=== PATIENT | female | born 1990 | race Caucasian/White ===

== ENCOUNTER 2017-05-12 17:17 | Emergency (ER) | payer MEDICARE, MEDICAID ==
[~2017-05-12] VITALS: Ht 162.6 cm; Wt 84.0 kg
[2017-05-12 17:34] VITALS: BP 112/77
[2017-05-12] MEDS ORDERED: IBUP-1986 PO (17:56)
== END 2017-05-12 18:08 | disposition home or self-care (01) ==
LOC: ER 17:18
DX: S86.912A Strain of unspecified muscle(s) and tendon(s) at lower leg level, left leg, initial encounter (principal); Z88.8 Allergy status to other drugs, medicaments and biological substances; W22.8XXA Striking against or struck by other objects, initial encounter; Y93.67 Activity, basketball; Y92.89 Other specified places as the place of occurrence of the external cause; Y99.8 Other external cause status
CPT/HCPCS: 99283

== ENCOUNTER 2017-07-02 18:07 | Emergency (ER) | payer MEDICARE, MEDICAID ==
[~2017-07-02] VITALS: Ht 162.6 cm; Wt 87.4 kg
[~2017-07-02 18:07] MED LIST: IBUP-1986 PO
[2017-07-02 20:01] VITALS: BP 148/94
== END 2017-07-02 20:02 | disposition home or self-care (01) ==
LOC: ER 18:08
DX: J02.9 Acute pharyngitis, unspecified (principal); H81.10 Benign paroxysmal vertigo, unspecified ear; Z56.0 Unemployment, unspecified; Z88.8 Allergy status to other drugs, medicaments and biological substances
CPT/HCPCS: 99281

== ENCOUNTER 2017-10-11 09:36 | Emergency (ER) | payer MEDICARE, MEDICAID ==
[~2017-10-11] VITALS: Ht 565.3 cm; Wt 83.5 kg
[2017-10-11 10:04] VITALS: BP 137/61
[2017-10-11] MEDS ORDERED: NAPR-56 PO (10:18)
== END 2017-10-11 10:33 | disposition home or self-care (01) ==
LOC: ER 09:43
DX: M25.562 Pain in left knee (principal); G89.29 Other chronic pain; Z56.0 Unemployment, unspecified; Z88.8 Allergy status to other drugs, medicaments and biological substances; Z79.899 Other long term (current) drug therapy
CPT/HCPCS: 99284

== ENCOUNTER 2017-12-19 19:35 | Emergency (ER) | payer MEDICARE, MEDICAID ==
[~2017-12-19] VITALS: Ht 162.6 cm; Wt 69.3 kg
[2017-12-19] MEDS ORDERED: ketorolac tromethamine 15mg/ml inj. IM ONE (20:20)
[2017-12-19] MEDS ORDERED: IBUP-1985 PO (20:23)
[2017-12-19 20:49] LABS: URINE HCG POSITIVE (NEG)
[2017-12-20 02:02] VITALS: BP 139/87
== END 2017-12-20 02:22 | disposition home or self-care (01) ==
LOC: ER 19:35
DX: M71.21 Synovial cyst of popliteal space [Baker], right knee (principal); M25.561 Pain in right knee; Z33.1 Pregnant state, incidental; Z87.891 Personal history of nicotine dependence; Z88.8 Allergy status to other drugs, medicaments and biological substances
CPT/HCPCS: 81025; 93971; 96372; 99285; J1885; J7030

== ENCOUNTER → 2017-12-24 | Emergency (ER) | payer MEDICARE, MEDICAID ==
[~2017-12-24] VITALS: Ht 162.6 cm; Wt 78.2 kg
[~2017-12-24] MED LIST changes: +BUPIVAcaine/PF 2.5 mg/ml (0.25%) 30ml vial IJ ONE; +BUPIVAcaine/PF 2.5mg/ml (0.25%) 10ml vial IJ ONE; +IBUP-1985 PO
[2017-12-24 14:03] VITALS: BP 126/69
== END | disposition home or self-care (01) ==
LOC: ER 13:51
DX: O99.712 Diseases of the skin and subcutaneous tissue complicating pregnancy, second trimester (principal); L02.31 Cutaneous abscess of buttock; Z88.8 Allergy status to other drugs, medicaments and biological substances; Z3A.21 21 weeks gestation of pregnancy
CPT/HCPCS: 10060; 99284; A6449; J3490

== ENCOUNTER 2018-04-27 11:12 | Emergency (ER) | payer MEDICARE, MEDICAID ==
[~2018-04-27] VITALS: Ht 162.6 cm; Wt 80.6 kg
[~2018-04-27 11:12] MED LIST changes: -BUPIVAcaine/PF 2.5 mg/ml (0.25%) 30ml vial IJ ONE; -BUPIVAcaine/PF 2.5mg/ml (0.25%) 10ml vial IJ ONE
[2018-04-27 12:47] LABS: BASOPHILS % (AUTO) 0.4 % (0-1); EOSINOPHILS % (AUTO) 0.3 % (0-6); HEMATOCRIT 35.3 % (35.0-45.0); LYMPHOCYTES # (AUTO) 1.7 X10'3 (1.1-4.8); LYMPHOCYTES % (AUTO) 21.2 % (21-51); MEAN CORPUSCULAR HEMOGLOBIN 31.9 PG (27.0-31.0); MEAN CORPUSCULAR VOLUME 93.8 FL (78-98); MEAN PLATELET VOLUME 8.2 FL (7.4-10.4); MONOCYTES # (AUTO) 0.5 X10'3 (0-0.9); NEUTROPHILS % (AUTO) 72.1 % (42-75); PLATELET COUNT 330 X10'3 (140-440); RED BLOOD COUNT 3.77 X10'6 (4.20-5.60); RED CELL DISTRIBUTION WIDTH 12.7 % (11.5-14.5); WHITE BLOOD COUNT 8.2 X10'3 (4.5-11.0)
[2018-04-27 13:04] LABS: ALANINE AMINOTRANSFERASE 41 U/L (12-78); ALBUMIN 2.7 G/DL (3.4-5.0); ALBUMIN/GLOBULIN RATIO 0.6 (1.1-1.5); ALKALINE PHOSPHATASE 87 IU/L (46-116); ANION GAP 12 (8-16); ASPARTATE AMINO TRANSFERASE 18 U/L (10-37); BILIRUBIN,TOTAL 0.2 MG/DL (0.1-1.0); BLOOD UREA NITROGEN 4 MG/DL (7-18); BUN/CREATININE RATIO 9.5 (6.6-38.0); CALCIUM 8.3 MG/DL (8.5-10.1); CHLORIDE 102 MMOL/L (99-107); CREATININE 0.42 MG/DL (0.40-0.90); GLUCOSE 81 MG/DL (70-104); POTASSIUM 3.4 MMOL/L (3.5-5.1); SODIUM 137 MMOL/L (135-145); TOTAL CARBON DIOXIDE 23.2 MMOL/L (24-32); TOTAL PROTEIN 6.9 G/DL (6.4-8.2); eGFR > 90 ML/MIN
[2018-04-27 13:33] LABS: BETA HCG,QUANTITATIVE 23956 mIU/ml
[2018-04-27 14:05] VITALS: BP 103/58
== END 2018-04-27 14:10 | disposition home or self-care (01) ==
LOC: ER 11:13
DX: O20.0 Threatened abortion (principal); O26.892 Other specified pregnancy related conditions, second trimester; J02.9 Acute pharyngitis, unspecified; Z88.8 Allergy status to other drugs, medicaments and biological substances; Z79.899 Other long term (current) drug therapy; Z3A.23 23 weeks gestation of pregnancy
CPT/HCPCS: 36415; 76811; 80053; 84702; 85025; 86900; 86901; 99284

== ENCOUNTER 2019-03-16 20:11 | Emergency (ER) | payer MEDICARE, MEDICAID ==
[~2019-03-16] VITALS: Ht 162.6 cm; Wt 77.8 kg
[2019-03-16 20:30] VITALS: BP 120/76
[2019-03-16] MEDS ORDERED: IBUP-1984 PO (21:00)
== END 2019-03-16 21:15 | disposition home or self-care (01) ==
LOC: ER 20:12
DX: S63.650A Sprain of metacarpophalangeal joint of right index finger, initial encounter (principal); F31.9 Bipolar disorder, unspecified; Z88.8 Allergy status to other drugs, medicaments and biological substances; Z79.899 Other long term (current) drug therapy; W01.0XXA Fall on same level from slipping, tripping and stumbling without subsequent striking against object, initial encounter; Y93.89 Activity, other specified; Y92.89 Other specified places as the place of occurrence of the external cause; Y99.8 Other external cause status
CPT/HCPCS: 29130; 73140; 99284

== ENCOUNTER 2019-08-26 22:19 | Emergency (ER) | payer MEDICAID, MEDICARE ==
[~2019-08-26] VITALS: Ht 162.6 cm; Wt 59.1 kg
[2019-08-26 22:21] VITALS: BP 146/91
[2019-08-26] MEDS ORDERED: IBUP-1985 PO (22:50)
== END 2019-08-26 23:14 | disposition home or self-care (01) ==
LOC: ER 22:20
DX: M25.561 Pain in right knee (principal); F31.9 Bipolar disorder, unspecified; Z88.0 Allergy status to penicillin; Z79.899 Other long term (current) drug therapy; X50.9XXA Other and unspecified overexertion or strenuous movements or postures, initial encounter; Y93.02 Activity, running; Y92.89 Other specified places as the place of occurrence of the external cause; Y99.8 Other external cause status
CPT/HCPCS: 29505; 99283

== ENCOUNTER 2021-01-21 08:55 | Emergency (ER) | payer MEDICARE, MEDICAID ==
[~2021-01-21] VITALS: Ht 162.6 cm; Wt 80.0 kg
[2021-01-21] MEDS ORDERED: acetaminophen 325mg tablet PO ONE (09:05)
--- NOTE | 2021-01-21 09:22 | NUR ---
no redness noted. minor swelling in the area but no drainage present. patient reports left buttocks pain but other symptoms. denies nausea/vomiting. pt not up to date on tdap. pt unaware of dogs vaccine status.
[2021-01-21 09:26] VITALS: BP 121/86
[2021-01-21 09:51] LABS: URINE HCG NEGATIVE (NEG)
[2021-01-21] MEDS ORDERED: bacitracin 15gm ointment TP ONE (09:55)
[2021-01-21] MEDS ORDERED: SULF1TAB49 PO (09:55)
[2021-01-21] MEDS ORDERED: CLIN150C2 PO (09:55)
[2021-01-21] MEDS ORDERED: TETanus/Pertussis (Acell)/Diphther VAC/PF (Tdap-Adult) 0.5ml syringe IMVAC ONE (09:55)
== END 2021-01-21 10:33 | disposition home or self-care (01) ==
LOC: ER 08:56
DX: S70.12XA Contusion of left thigh, initial encounter (principal); E05.90 Thyrotoxicosis, unspecified without thyrotoxic crisis or storm; Z88.0 Allergy status to penicillin; Z79.2 Long term (current) use of antibiotics; Z79.899 Other long term (current) drug therapy; W54.0XXA Bitten by dog, initial encounter; Y93.9 Activity, unspecified; Y92.89 Other specified places as the place of occurrence of the external cause; Y99.8 Other external cause status
CPT/HCPCS: 81025; 90471; 90715; 99283

== ENCOUNTER 2022-04-04 12:08 | Emergency (ER) | payer MEDICARE, MEDICAID ==
[~2022-04-04] VITALS: Ht 162.6 cm; Wt 82.5 kg
[2022-04-04 12:36] VITALS: BP 130/82
[2022-04-04] MEDS ORDERED: CLIN-30 PO ×3 (15:48→16:01)
[2022-04-04] MEDS ORDERED: clindamycin 150mg capsule PO ONE (15:50)
[2022-04-04] MEDS ORDERED: ibuprofen tablet 400 MG TABLET PO ONE (15:50)
== END 2022-04-04 16:08 | disposition home or self-care (01) ==
LOC: ER 12:09
DX: K04.7 Periapical abscess without sinus (principal); F31.9 Bipolar disorder, unspecified; Z88.0 Allergy status to penicillin
CPT/HCPCS: 99283

== ENCOUNTER 2023-04-08 10:06 | Emergency (ER) | payer MEDICARE, MEDICAID ==
[~2023-04-08] VITALS: Ht 162.6 cm; Wt 85.9 kg
[~2023-04-08 10:06] MED LIST changes: +CLIN-30 PO
[2023-04-08 10:09] VITALS: TEMP 98.2
[2023-04-08 10:25] LABS: BILIRUBIN,URINE NEGATIVE (Neg); CLARITY,URINE CLOUDY (Clear); COLOR,URINE YELLOW (Yellow); GLUCOSE, URINE NEGATIVE (Neg); KETONES,URINE NEGATIVE (Neg); LEUKOCYTE ESTERASE ,URINE SMALL (Neg); NITRITES, URINE NEGATIVE (Neg); OCCULT BLOOD,URINE NEGATIVE (Neg); PROTEIN,URINE TRACE mg/dl (Neg)
[2023-04-08 10:30] LABS: UA COLLECTION TYPE CLN CATCH MIDSTREAM
[2023-04-08 10:31] LABS: MUCUS STRANDS MANY /LPF (Neg); SQUAMOUS EPITHELIAL CELL,UR MANY /LPF (FEW); WBC,URINE TNTC /HPF (0-4)
[2023-04-08 10:32] LABS: BACTERIA,URINE 4+ /HPF (Neg)
[2023-04-08 10:33] LABS: RBC,URINE 0-2 /HPF (0-2)
[2023-04-08 11:41] LABS: BASOPHILS % (AUTO) 0.4 % (0-1); EOSINOPHILS % (AUTO) 0.2 % (0-6); HEMATOCRIT 37.2 % (35.0-45.0); HEMOGLOBIN 12.4 g/dl (12.0-16.0); LYMPHOCYTES # (AUTO) 1.2 X10'3 (1.1-4.8); LYMPHOCYTES % (AUTO) 12.5 % (21-51); MEAN CORPUSCULAR HEMOGLOBIN 29.4 PG (27.0-31.0); MEAN CORPUSCULAR HGB CONC 33.3 g/dL (33.0-36.5); MEAN CORPUSCULAR VOLUME 88.5 FL (78-98); MEAN PLATELET VOLUME 8.7 FL (7.4-10.4); MONOCYTES # (AUTO) 0.6 X10'3 (0-0.9); MONOCYTES % (AUTO) 6.2 % (2-12); NEUTROPHILS # (AUTO) 7.7 X10'3 (1.8-7.7); NEUTROPHILS % (AUTO) 80.7 % (42-75); PLATELET COUNT 391 X10'3 (140-440); RED CELL DISTRIBUTION WIDTH 13.8 % (11.5-14.5); WHITE BLOOD COUNT 9.6 X10'3 (4.5-11.0)
[2023-04-08 11:50] LABS: ALANINE AMINOTRANSFERASE 34 U/L (12-78); ALBUMIN 3.3 G/DL (3.4-5.0); ALBUMIN/GLOBULIN RATIO 0.7 (1.1-1.5); ALKALINE PHOSPHATASE 114 IU/L (46-116); ANION GAP 10 (8-16); ASPARTATE AMINO TRANSFERASE 26 U/L (10-37); BILIRUBIN,TOTAL 0.3 MG/DL (0.1-1.0); BLOOD UREA NITROGEN 8 MG/DL (7-18); BUN/CREATININE RATIO 11.9 (10.0-20.0); CALCIUM 8.8 MG/DL (8.5-10.1); CHLORIDE 103 MMOL/L (99-107); CREATININE 0.67 MG/DL (0.40-0.90); GLUCOSE 110 MG/DL (70-104); LIPASE 26 U/L (16-77); SODIUM 137 MMOL/L (135-145); TOTAL CARBON DIOXIDE 24.5 MMOL/L (24-32); eCRCL 104 ML/MIN; eGFR > 90 ML/MIN
[2023-04-08 12:15] LABS: URINE HCG NEGATIVE (NEG)
[2023-04-08] MEDS ORDERED: iohexol 300mg/ml 100ml inj. ONE (12:28)
[2023-04-08 13:14] VITALS: BP 114/69; PULSE 74; O2SAT 99
[2023-04-08] MEDS ORDERED: morphine 4 MG/ML inj SYRINge IV ONE (13:25)
[2023-04-08] MEDS ORDERED: ondansetron/PF 4mg/2ml inj IV ONE (13:25)
[2023-04-08 13:36] VITALS: RESP 16
[2023-04-08] MEDS ORDERED: LIDOcaine 1% 30ml preserv. free vial IJ STA (14:00)
[2023-04-08] MEDS ORDERED: OXYC-658 PO (14:32)
[2023-04-08] MEDS ORDERED: SULF1TAB49 PO (14:32)
[2023-04-08] MEDS ORDERED: IBUP-1984 PO (14:32)
[2023-04-10] MEDS ORDERED: CEPH-585 PO (16:13)
== END 2023-04-08 14:54 | disposition home or self-care (01) ==
LOC: ER 10:06
DX: L02.215 Cutaneous abscess of perineum (principal)
CPT/HCPCS: 36415; 46050; 74177; 80053; 81001; 81025; 83690; 85025; 96374; 96375; 99285; J2270; J2405; J3490; Q9967; 10060

== ENCOUNTER → 2023-04-10 | Emergency (ER) | payer MEDICARE, MEDICAID ==
[~2023-04-10] VITALS: Ht 162.6 cm; Wt 83.5 kg
[~2023-04-10] MED LIST changes: +CEPH-585 PO; +IBUP-1984 PO; +OXYC-658 PO; +SULF1TAB49 PO
[2023-04-10 16:03] VITALS: BP 121/69; PULSE 87; RESP 16; TEMP 98.7; O2SAT 99
== END | disposition home or self-care (01) ==
LOC: ER 15:13
DX: K61.1 Rectal abscess (principal)
CPT/HCPCS: 99283

== ENCOUNTER 2023-05-21 13:19 | Emergency (ER) | payer MEDICAID, MEDICARE, OTHER ==
[~2023-05-21] VITALS: Ht 162.6 cm; Wt 85.0 kg
[~2023-05-21 13:19] MED LIST changes: -IBUP-1984 PO; -OXYC-658 PO; -SULF1TAB49 PO
[2023-05-21] MEDS ORDERED: azithromycin 250mg tablet PO ONE (14:40)
[2023-05-21] MEDS ORDERED: TINIDAZOLE 500 MG TABLET PO ONE (14:45)
[2023-05-21] MEDS ORDERED: CefTRIAXone 500MG IM Kit w/LIDOcaine (for pt below or = to 150kg) IM ONE (14:50)
[2023-05-21 15:58] LABS: URINE HCG NEGATIVE (NEG)
[2023-05-21 18:22] VITALS: BP 119/82; PULSE 77; RESP 17; TEMP 97.9; O2SAT 97
== END 2023-05-21 18:26 | disposition home or self-care (01) ==
LOC: EEVIPCON 13:20 → ER 13:20
DX: Z04.41 Encounter for examination and observation following alleged adult rape (principal); F31.9 Bipolar disorder, unspecified; Z88.0 Allergy status to penicillin; Z79.2 Long term (current) use of antibiotics; Z79.1 Long term (current) use of non-steroidal anti-inflammatories (NSAID)
CPT/HCPCS: 81025; 96372; 99283; J0696